=== PATIENT | male | born 1960 | race Caucasian/White ===

== ENCOUNTER 2017-04-11 05:35 | Emergency (ER) | payer OTHER ==
[2017-04-11] MEDS: KETOROLAC 60 MG INJ IM (06:34)
[2017-04-11] MEDS: morphine 4 MG/ML VIAL IM (07:43)
== END 2017-04-11 09:25 | disposition home or self-care (01) ==
LOC: FTE 05:35
DX: M54.5 Low back pain (principal)
CPT/HCPCS: 72100; 73520; 96372; 99284-25